=== PATIENT | female | born 1980 | race Caucasian/White ===

== ENCOUNTER 2020-01-29 10:26 | Outpatient (CLI) | payer OTHER | END 2020-01-29 10:29 | disposition home or self-care (01) | LOC: NUCLEAR 10:26 | DX: C53.0 Malignant neoplasm of endocervix (principal) | CPT/HCPCS: 78815; A9552 ==

== ENCOUNTER 2020-02-06 10:34 | Outpatient (CLI) | payer OTHER | END 2020-02-06 10:54 | disposition home or self-care (01) | LOC: MRI 10:34 | DX: C55 Malignant neoplasm of uterus, part unspecified (principal) | CPT/HCPCS: 72196 ==

== ENCOUNTER 2020-05-17 12:30 | Inpatient (IN) | payer OTHER ==
[~2020-05-17] VITALS: Ht 172.7 cm; Wt 75.3 kg
== END 2020-05-23 12:28 | disposition home or self-care (01) | DRG 743 ==
LOC: SEC-K 05-18 17:06 → MEDJ 05-18 17:06 → SURH 05-20 12:30 → OB/GYN 05-20 15:59
PROVIDERS: Obstetrics & Gynecology Gynecologic Oncology; Surgery; ADMIT Internal Medicine; ATTEND Internal Medicine
PROC: 30233N1 Transfusion of Nonautologous Red Blood Cells into Peripheral Vein, Percutaneous Approach (ICD-10-PCS; 2020-05-19)
PROC: 0DNW0ZZ Release Peritoneum, Open Approach (ICD-10-PCS; 2020-05-20)
PROC: 0UB70ZZ Excision of Bilateral Fallopian Tubes, Open Approach (ICD-10-PCS; 2020-05-20)
PROC: 0UT20ZZ Resection of Bilateral Ovaries, Open Approach (ICD-10-PCS; 2020-05-20)
PROC: 0DTJ0ZZ Resection of Appendix, Open Approach (ICD-10-PCS; 2020-05-20)
PROC: 0UT90ZZ Resection of Uterus, Open Approach (ICD-10-PCS; principal; 2020-05-20 10:45)
PROC: 0DNE0ZZ Release Large Intestine, Open Approach (ICD-10-PCS; 2020-05-20 10:45)
DX: D25.0 Submucous leiomyoma of uterus (principal); D25.1 Intramural leiomyoma of uterus; D25.2 Subserosal leiomyoma of uterus; N73.6 Female pelvic peritoneal adhesions (postinfective); N80.0 Endometriosis of uterus; N73.5 Female pelvic peritonitis, unspecified; D64.89 Other specified anemias; N80.8 Other endometriosis; N72 Inflammatory disease of cervix uteri